=== PATIENT | male | born 1980 | race African-American/Black ===

== ENCOUNTER 2018-12-27 21:45 | Emergency (ER) | payer SELFPAY ==
[2018-12-27] MEDS ORDERED: Clindamycin 150 MG CAP ONE (22:05)
== END 2018-12-27 22:14 | disposition home or self-care (01) ==
LOC: NAV ERS 21:45
DX: K04.7 Periapical abscess without sinus (principal); J45.909 Unspecified asthma, uncomplicated; F17.210 Nicotine dependence, cigarettes, uncomplicated
CPT/HCPCS: 99282

== ENCOUNTER 2018-12-28 13:31 | Emergency (ER) | payer SELFPAY ==
[2018-12-28] MEDS ORDERED: Ketorolac Tromethamine 60 MG/2 ML VIAL ONE (14:16)
== END 2018-12-28 15:08 | disposition home or self-care (01) ==
LOC: NAV ERS 13:31
DX: K04.7 Periapical abscess without sinus (principal); Z71.6 Tobacco abuse counseling; F17.210 Nicotine dependence, cigarettes, uncomplicated; Z79.899 Other long term (current) drug therapy
CPT/HCPCS: 96372; 99406; J1885

== ENCOUNTER 2019-01-23 22:52 | Emergency (ER) | payer SELFPAY ==
[2019-01-23] MEDS ORDERED: Clindamycin 150 MG CAP ONE (23:15)
[2019-01-23] MEDS ORDERED: Ketorolac Tromethamine 60 MG/2 ML VIAL ONE (23:15)
== END 2019-01-23 23:28 | disposition home or self-care (01) ==
LOC: NAV ERS 22:52
DX: K04.7 Periapical abscess without sinus (principal); I88.9 Nonspecific lymphadenitis, unspecified; F17.210 Nicotine dependence, cigarettes, uncomplicated
CPT/HCPCS: 96372; J1885

== ENCOUNTER 2019-02-07 03:03 | Emergency (ER) | payer SELFPAY ==
[2019-02-07] MEDS ORDERED: Clindamycin 150 MG CAP ONE (03:36)
== END 2019-02-07 03:49 | disposition home or self-care (01) ==
LOC: NAV ERS 03:03
DX: L04.0 Acute lymphadenitis of face, head and neck (principal); F17.210 Nicotine dependence, cigarettes, uncomplicated
CPT/HCPCS: 99283